=== PATIENT | female | born 1970 | race Two or more races ===

== ENCOUNTER 2022-04-08 09:24 | Emergency (ER) | payer OTHER ==
[2022-04-08 09:36] VITALS: BP 125/77; PULSE 72; TEMP 99.5; BMI 21.9
[2022-04-08] MEDS ORDERED: LIDOCAINE 5% TOPICAL PATCH TP ONE (10:59)
[2022-04-08] MEDS ORDERED: KETOROLAC TROMETHAMINE 30 MG/1 ML VIAL IM ONE (10:59)
[2022-04-08] MEDS ORDERED: DIPHTH,PERTUSS(ACELL),TET 0.5 ML DISP.SYRIN IM ONE ×2 (10:59→11:05)
[2022-04-08] MEDS ORDERED: LIDOCAINE 5% TOPICAL PATCH ONE (11:04)
[2022-04-08] MEDS ORDERED: KETOROLAC TROMETHAMINE 30 MG/1 ML VIAL ONE (11:05)
[2022-04-08] MEDS ORDERED: LIDOCAINE PATCH REMOVAL MC SCH (22:00)
== END 2022-04-08 12:59 | disposition home or self-care (01) ==
LOC: JER 09:24 → JERFT 09:24
PROC: 3E023GC Introduction of Other Therapeutic Substance into Muscle, Percutaneous Approach (ICD-10-PCS; principal; 2022-04-08)
PROC: 3E0234Z Introduction of Serum, Toxoid and Vaccine into Muscle, Percutaneous Approach (ICD-10-PCS; 2022-04-08)
DX: M79.602 Pain in left arm (principal); M79.605 Pain in left leg; V03.10XA Pedestrian on foot injured in collision with car, pick-up truck or van in traffic accident, initial encounter
CPT/HCPCS: 73060-TC-LT-FY; 73090-TC-LT-FY; 73140-TC-LT-FY; 73552-TC-LT-FY; 90471; 90715; 96372; 99284-25

== ENCOUNTER 2022-05-13 16:01 | Emergency (ER) | payer OTHER ==
[2022-05-13 16:34] VITALS: BP 95/59; PULSE 71; TEMP 98.1; BMI 17.2
== END 2022-05-13 18:43 | disposition home or self-care (01) ==
LOC: JERFT 16:01
DX: L03.011 Cellulitis of right finger (principal)
CPT/HCPCS: 99283-25